=== PATIENT | female | born 1935 | race American Indian/Alaskan Native ===

== ENCOUNTER 2017-06-17 13:57 | Emergency (ER) | payer MEDICARE ==
[2017-06-17 15:37] LABS: Albumin 3.4 g/dL (3.9-5); Albumin/Globulin Ratio 1.1 %; BUN/Creatinine Ratio 26.15; Bilirubin,Total 0.5 mg/dL (0.1-1.2); Calcium 8.7 mg/dL (8.4-10.2); Total Protein 6.4 g/dL (6.3-8.2)
[2017-06-17 15:38] LABS: Chloride 109.4 mmol/L (98-107); Potassium 4.1 mmol/L (3.6-5.0)
[2017-06-17 15:52] LABS: Basophils % (Auto) 0.3 % (0.0-1.8); Eosinophils % (Auto) 0.9 % (0.0-4.3); Hematocrit 32.8 % (30.3-42.9); Hemoglobin 10.9 gm/dl (10.1-14.3); Mean Corpuscular HGB Conc 33 % (30-34); Mean Corpuscular Hemoglobin 28 pg (28-32); Mean Corpuscular Volume 85 fl (79-97); Platelet Count 201 K/mm3 (140-440); Red Blood Count 3.84 M/mm3 (3.65-5.03); Red Cell Distribution Width 15.1 % (13.2-15.2); White Blood Count 11.9 K/mm3 (4.5-11.0)
[2017-06-17 16:04] LABS: INR 1.06 (0.87-1.13)
[2017-06-17 16:05] LABS: Partial Thromboplastin Time 32.4 Sec. (24.2-36.6)
[2017-06-17] MEDS ORDERED: NACL 0.9% 1000 ML 1,000 ML IV ONE (16:19)
[2017-06-17] MEDS ORDERED: PEPCID IV ONE (17:10)
[2017-06-17 17:33] LABS: Hematocrit 34.9 % (30.3-42.9); Hemoglobin 11.5 gm/dl (10.1-14.3)
--- NOTE | 2017-06-17 18:24 | Emergency Department Report ---
HPI - General Chief Complaint: Nausea/Vomiting/Diarrhea Time Seen by Provider: 06/17/17 16:18 - HPI HPI: 82 y.o aaf brought to the ED with the chief complaint of vomiting. Patient states she started vomiting yesterday and had 3 episodes yesterday and one episode today. Patient states she is vomiting and food content but couldn't rule out any blood in the vomiting. Patient also had been having loose stool, brown. Patient denies any fever chills or night sweats. ED Past Medical Hx - Past Medical History Hx Hypertension: Yes Hx CVA: Yes Hx Diabetes: Yes Hx Arthritis: Yes Hx HIV: No - Surgical History Additional Surgical History: abdominal surgery 1978. hysterectomy 1978 - Family History Family history: hypertension - Social History Smoking Status: Former Smoker Substance Use Type: None - Medications Home Medications: Home Medications Medication Instructions Recorded Confirmed Last Taken Type Aspirin [Aspirin TAB] 325 mg PO QDAY #30 tablet 10/30/15 Unknown Rx HYDROcodone/APAP 5-325 [[place] 1 each PO Q4HR PRN #40 tablet 10/30/15 Unknown Rx 5-325 mg TAB] Lisinopril [Zestril TAB] 20 mg PO QDAY #30 tablet 10/30/15 Unknown Rx Metformin HCl [Fortamet ER] 1,000 mg PO BID #60 tab 10/30/15 Unknown Rx Pravastatin Sodium [Pravastatin] 20 mg PO QHS #30 tablet 10/30/15 Unknown Rx Omeprazole 40 mg PO QAC #30 capsule. 06/17/17 Unknown Rx ED Review of Systems ROS: Stated complaint: GI BLEED Other details as noted in HPI Comment: All other systems reviewed and negative Gastrointestinal: abdominal pain, nausea, vomiting, diarrhea Physical Exam - Physical Exam Vital Signs: Vital Signs 06/17/17 14:35 Temperature 98.5 F Pulse Rate 76 Respiratory 16 Rate Blood Pressure 118/66 Blood Pressure 118/66 [Right] O2 Sat by Pulse 98 Oximetry Physical Exam: Physical Exam: - General Limitations: No Limitations General appearance: alert, in no apparent distress - Head Head exam: Present: atraumatic, normocephalic - Eye Eye exam: Present: normal appearance - ENT ENT exam: Present: mucous membranes moist - Neck Neck exam: Present: normal inspection - Respiratory Respiratory exam: Present: normal lung sounds bilaterally. Absent: respiratory distress - Cardiovascular Cardiovascular Exam: Present: normal rhythm. Absent: systolic murmur, diastolic murmur, rubs, gallop - GI/Abdominal GI/Abdominal exam: Present: soft, normal bowel sounds - Extremities Exam Extremities exam: Present: normal inspection - Back Exam Back exam: Present: normal inspection - Neurological Exam Neurological exam: Present: alert, oriented X3, - Skin Skin exam: Present: warm, dry, intact, normal color. Absent: rash ED Course Vital Signs 06/17/17 14:35 Temperature 98.5 F Pulse Rate 76 Respiratory 16 Rate Blood Pressure 118/66 Blood Pressure 118/66 [Right] O2 Sat by Pulse 98 Oximetry - Reevaluation(s) Reevaluation #1: 06/17/17 18:59 No clubbing and hematocrit checked 2 times in ER and both are within normal limits. I doubt that this patient is having any hematemesis or melena, hematochezia. I explained to the patient laboratory findings and she agrees to go back to the rehabilitation place with follow-up GI. ED Medical Decision Making - Lab Data Result diagrams: 06/17/17 16:57 06/17/17 15:01 Critical care attestation.: If time is entered above; I have spent that time in minutes in the direct care of this critically ill patient, excluding procedure time. ED Disposition Clinical Impression: Gastritis Qualifiers: Gastritis type: other gastritis Chronicity: acute Gastritis bleeding: without bleeding Qualified Code(s): K29.00 - Acute gastritis without bleeding Disposition: DC-01 TO HOME OR SELFCARE Is pt being admited?: No Does the pt Need Aspirin: No Condition: Stable Prescriptions: Omeprazole 40 mg PO QA #30 capsule. Referrals: ANAHY CHAPIN MD [Primary Care Provider] - 3-5 Days YVETTE RUBIO MD [Staff Physician] - 3-5 Days Forms: Accompanied Note
[2017-06-17 19:04] VITALS: BP 104/69
== END 2017-06-18 01:20 | disposition home or self-care (01) ==
LOC: ED 13:57
DX: K29.00 Acute gastritis without bleeding (principal); I10 Essential (primary) hypertension; E11.9 Type 2 diabetes mellitus without complications; Z87.891 Personal history of nicotine dependence
CPT/HCPCS: 36415; 80053; 83690; 85014; 85018; 85025; 85610; 85730; 86850; 86900; 86901; 96374

== ENCOUNTER 2019-12-11 17:12 | Emergency (ER) | payer MEDICARE ==
[2019-12-11] MEDS ORDERED: OXYMETAZOLINE 0.05% NASAL SPRAY NS ONE (18:26)
--- NOTE | 2019-12-11 18:48 | Emergency Department Report ---
ED ENT HPI - General Chief complaint: Nosebleed Stated complaint: NOSE BLEED Time Seen by Provider: 12/11/19 18:15 Source: EMS Mode of arrival: Ambulatory Limitations: No Limitations, Physical Limitation - History of Present Illness Initial comments: Patient is an 84-year-old female that presents emergency room with complaints of nosebleed. Patient states that her nose started bleeding yesterday at 7:30 PM. Patient states it has been a intermittent drip. Patient denies profuse bleeding. Patient states that it stops and starts. Patient states she is taking a baby aspirin daily. Patient denies use of NSAIDs. Patient denies use of Tylenol. Patient denies pain. Patient denies chest pain or shortness of breath. [facility] Patient denies bleeding down her throat. Patient denies cough. Patient denies recent upper respiratory infection. Patient denies fever or chills. Patient states she is compliant with all of her medications. MD complaint: epistaxis -: Sudden Location: nose Severity: mild, moderate Severity scale (0 -10): 0 Consistency: constant Improves with: pressure, rest Worsens with: position Context-Epistaxis: aspirin use Associated Symptoms: denies: fever, cough, gum swelling, toothache, pain with swallowing, sore throat, tinnitus, hearing loss, discharge from ear, rhinorrhea - Related Data Previous Rx's Medication Instructions Recorded Last Taken Type Aspirin 325 mg PO QDAY #30 tablet 10/30/15 Unknown Rx HYDROcodone/APAP 5-325 [[place] 1 each PO Q4HR PRN #40 tablet 10/30/15 Unknown Rx 5-325 mg TAB] Metformin HCl [Fortamet ER] 1,000 mg PO BID #60 tab 10/30/15 Unknown Rx Pravastatin Sodium [Pravastatin] 20 mg PO QHS #30 tablet 10/30/15 Unknown Rx lisinopriL [Zestril TAB] 20 mg PO QDAY #30 tablet 10/30/15 Unknown Rx Omeprazole 40 mg PO QAC #30 capsule. 06/17/17 Unknown Rx Allergies Allergy/AdvReac Type Severity Reaction Status Date / Time No Known Allergies Allergy Unverified 08/12/15 11:28 ED Dental HPI - General Chief complaint: Nosebleed Stated complaint: NOSE BLEED Time Seen by Provider: 12/11/19 18:23 Source: EMS Mode of arrival: Ambulatory Limitations: No Limitations, Physical Limitation - Related Data Previous Rx's Medication Instructions Recorded Last Taken Type Aspirin 325 mg PO QDAY #30 tablet 10/30/15 Unknown Rx HYDROcodone/APAP 5-325 [[place] 1 each PO Q4HR PRN #40 tablet 10/30/15 Unknown Rx 5-325 mg TAB] Metformin HCl [Fortamet ER] 1,000 mg PO BID #60 tab 10/30/15 Unknown Rx Pravastatin Sodium [Pravastatin] 20 mg PO QHS #30 tablet 10/30/15 Unknown Rx lisinopriL [Zestril TAB] 20 mg PO QDAY #30 tablet 10/30/15 Unknown Rx Omeprazole 40 mg PO QAC #30 capsule. 06/17/17 Unknown Rx Allergies Allergy/AdvReac Type Severity Reaction Status Date / Time No Known Allergies Allergy Unverified 08/12/15 11:28 ED Review of Systems ROS: Stated complaint: NOSE BLEED Other details as noted in HPI Constitutional: denies: chills, fever Eyes: denies: eye pain, eye discharge, vision change ENT: epistaxis. denies: ear pain, throat pain Respiratory: denies: cough, shortness of breath, wheezing Cardiovascular: denies: chest pain, palpitations Endocrine: no symptoms reported Gastrointestinal: denies: abdominal pain, nausea, diarrhea Genitourinary: denies: urgency, dysuria, discharge Musculoskeletal: denies: back pain, joint swelling, arthralgia Skin: denies: rash, lesions Neurological: denies: headache, weakness, paresthesias Psychiatric: denies: anxiety, depression Hematological/Lymphatic: denies: easy bleeding, easy bruising ED Past Medical Hx - Past Medical History Previous Medical History?: Yes Hx Hypertension: Yes Hx CVA: Yes Hx Diabetes: Yes Hx Arthritis: Yes Hx HIV: No - Surgical History Past Surgical History?: Yes Additional Surgical History: abdominal surgery 1978. hysterectomy 1978 - Family History Family history: no significant - Social History Smoking Status: Never Smoker Substance Use Type: None - Medications Home Medications: Home Medications Medication Instructions Recorded Confirmed Last Taken Type Aspirin 325 mg PO QDAY #30 tablet 10/30/15 Unknown Rx HYDROcodone/APAP 5-325 [[place] 1 each PO Q4HR PRN #40 tablet 10/30/15 Unknown Rx 5-325 mg TAB] Metformin HCl [Fortamet ER] 1,000 mg PO BID #60 tab 10/30/15 Unknown Rx Pravastatin Sodium [Pravastatin] 20 mg PO QHS #30 tablet 10/30/15 Unknown Rx lisinopriL [Zestril TAB] 20 mg PO QDAY #30 tablet 10/30/15 Unknown Rx Omeprazole 40 mg PO QAC #30 capsule. 06/17/17 Unknown Rx ED Physical Exam - General Limitations: No Limitations, Physical Limitation General appearance: alert, in no apparent distress - Head Head exam: Present: atraumatic, normocephalic - Eye Eye exam: Present: normal appearance, PERRL Pupils: Present: normal accommodation - ENT ENT exam: Present: mucous membranes moist, other (Small amount of right nare bleeding noted. Bleeding continued after direct pressure was held.) - Neck Neck exam: Present: normal inspection - Respiratory Respiratory exam: Present: normal lung sounds bilaterally. Absent: respiratory distress - Cardiovascular Cardiovascular Exam: Present: regular rate, normal rhythm. Absent: systolic murmur, diastolic murmur, rubs, gallop - GI/Abdominal GI/Abdominal exam: Present: soft, normal bowel sounds - Extremities Exam Extremities exam: Present: normal inspection - Back Exam Back exam: Present: normal inspection - Neurological Exam Neurological exam: Present: alert, oriented X3 - Psychiatric Psychiatric exam: Present: normal affect, normal mood - Skin Skin exam: Present: warm, dry, intact, normal color. Absent: rash ED Course Vital Signs 12/11/19 12/11/19 12/11/19 17:32 17:46 17:47 Temperature 98.6 F Pulse Rate 76 68 Respiratory 18 Rate Blood Pressure 124/90 131/48 Blood Pressure 131/48 [Right] O2 Sat by Pulse Oximetry 12/11/19 12/11/19 12/11/19 18:01 18:31 22:22 Temperature 98.1 F Pulse Rate 79 Respiratory 18 Rate Blood Pressure 140/46 139/46 Blood Pressure 142/72 [Right] O2 Sat by Pulse 95 Oximetry - Reevaluation(s) Reevaluation #1: Pressure held to the nose and bleeding continued. A very slow bleed noted. 12/11/19 18:15 Reevaluation #2: Afrin placed in the left nostril and bleeding stopped. No active bleeding noted. 02/26/20 18:48 Reevaluation #3: No bleeding noted. Patient denies pain. Patient states she is feeling fine. I discussed all results and clinical findings with patient. I discussed plan of care with patient. Patient agrees with plan of care. Patient is stable for discharge. Patient will be discharged home. Patient given discharge instructions. Patient voiced understanding of discharge instructions. 12/11/19 20:19 ED Medical Decision Making - Lab Data Result diagrams: 12/11/19 18:43 - Medical Decision Making Patient is an 84-year-old female that presents emergency room with a left nare nosebleed. Patient has had an active bleed upon arrival. Initially, direct pressure held to the nose and patient continued to bleed. Patient then had Afrin placed in the left nostril. No active bleeding after the Afrin. Patient stable for discharge. Patient's labs done are unremarkable. Patient will be transferred back to her senior care - Differential Diagnosis Epistasis, nosebleed, anemia. Critical Care Time: Yes Critical care time in (mins) excluding proc time.: 35 Critical care attestation.: If time is entered above; I have spent that time in minutes in the direct care of this critically ill patient, excluding procedure time. Critical Care Time: 35 minutes ED Disposition Clinical Impression: Epistaxis Disposition: DC-01 TO HOME OR SELFCARE Is pt being admited?: No Does the pt Need Aspirin: No Condition: Stable Instructions: Epistaxis (ED) Additional Instructions: Patient to be discharged from ER and return to the senior care. Patient to follow-up with primary care in 2 to 3 days. Patient to follow-up with ENT in 2 to 3 days. Patient to rest. Patient to increase water. Patient to take Tylenol as needed for pain. Patient to return to the ER if condition worsens, changes or new symptoms arise. Referrals: PRIMARY MD TAVARES [Primary Care Provider] - 2-3 Days CANDIDO ALBA MD [Staff Physician] - 2-3 Days Time of Disposition: 20:21
[2019-12-11 19:45] LABS: Hematocrit 31.4 % (30.3-42.9); Hemoglobin 10.4 gm/dl (10.1-14.3); Mean Corpuscular HGB Conc 33 % (30-34); Mean Corpuscular Volume 83 fl (79-97); Platelet Count 253 K/mm3 (140-440); Red Blood Count 3.79 M/mm3 (3.65-5.03)
[2019-12-11 20:04] LABS: Partial Thromboplastin Time 36.3 Sec. (24.2-36.6)
[2019-12-11 22:23] VITALS: BP 142/72
== END 2019-12-11 23:31 | disposition home or self-care (01) ==
LOC: ED 17:12
DX: R04.0 Epistaxis (principal); I10 Essential (primary) hypertension; E11.9 Type 2 diabetes mellitus without complications; M19.90 Unspecified osteoarthritis, unspecified site; Z86.73 Personal history of transient ischemic attack (TIA), and cerebral infarction without residual deficits; Z79.899 Other long term (current) drug therapy; Z98.890 Other specified postprocedural states; Z90.710 Acquired absence of both cervix and uterus
CPT/HCPCS: 36415; 85027; 85610; 85730; 99291